=== PATIENT | female | born 1940 | race Caucasian/White ===

== ENCOUNTER 2017-10-15 00:19 | Inpatient (IN) ==
[2017-10-15] MEDS ORDERED: 0.9 % Sodium Chloride 1,000 ML ONE ×2 (00:24→04:43)
--- NOTE | 2017-10-15 00:24 | Emergency Department Note ---
Disposition Clinical Impression: Altered mental status, Hypotension Disposition: Admitted As Inpatient Condition: Serious Referrals: Lila Taylor MD [Primary Care Provider] - Buck Zepeda [Family Provider] - Forms: ED Satisfaction Letter Time of Disposition: 03:26 ([place] [facility]) Altered Mental Status HPI - General Chief Complaint: ED Altered Mental Status Stated Complaint: lethargic Time Seen by Provider: 10/15/17 00:25 Source: EMS Mode of arrival: EMS Limitations: altered mental status Nursing Notes Reviewed: Yes Vital Signs Reviewed: Yes - History of Present Illness HPI Narrative: The 7-year-old elderly female sent in from local residential for an alteration of a mental status where she is becoming less responsive she recently was started on Macrobid for urinary tract infection patient is unable to provide us with any history MD complaint: altered mental status Onset (ago): day(s) Consistency of Symptoms: waxing and waning, getting worse Context: other (recent illness) Associated symptoms: Reports: other (recent UTI) Treatments prior to arrival: IV fluid - Related Data Allergies Allergy/AdvReac Type Severity Reaction Status Date / Time aspirin Allergy See Verified 10/15/17 01:25 Comments caffeine Allergy See Verified 10/15/17 01:25 Comments Iodinated Contrast- Oral and Allergy See Verified 10/15/17 01:25 IV Dye Comments levofloxacin Allergy See Verified 10/15/17 01:25 Comments Penicillins Allergy See Verified 10/15/17 01:25 Comments sulfacetamide Allergy See Verified 10/15/17 01:25 [From Sulfamide] Comments Limitations: ROS unobtainable due to patients medical condition Past Medical History - Past Medical History Attestation: Yes The following information was validated with the patient. Source: patient, old records reviewed, nursing notes reviewed Medical history: Reports: COPD, GERD, hypertension, other (ascvd) Surgical history: Reports: other (baclofen pump) Physical Exam - General Limitations: altered mental status, age General appearance: obtunded - Head Head exam: atraumatic, normocephalic, normal inspection, other (Open-mouth breathing) - Eye Eye exam: Present: normal appearance, PERRL, EOMI - ENT ENT exam: normal exam, normal oropharynx, mucous membranes moist, TM's normal bilaterally, normal external ear exam - Neck Neck exam: Present: normal inspection, full ROM, trachea midline - Chest Chest inspection: Present: normal inspection, symmetric chest wall rise - Respiratory Respiratory exam: Present: normal lung sounds bilaterally - Cardiovascular Cardiovascular exam: Present: regular rate, normal rhythm, normal heart sounds - Abdominal Exam Abdominal exam: Present: soft, Non-Tender, diminished bowel sounds, mass, pulsatile mass - Extremities Exam Extremities exam: Present: other (So wasting of the extremities noted responsive to tactile stimulation by withdrawing contractures of the hands) - Back Exam Back exam: Present: normal inspection, full ROM. Absent: muscle spasm - Neurological Exam Neurological exam: Present: alert, oriented X3, CN II-XII intact, normal gait - Psychiatric Psychiatric exam: Present: normal affect, normal mood - Skin Skin exam: Present: warm, dry, intact, normal color Course Course Narrative: Patient was immediately seen and examined patient was given IV fluids upon her body weight workup was done to try to determine etiology for this case upon paperwork for this with her she is a in guarded condition prognosis is poor she is hypotensive she may be a partially treated UTI we did make sure that she does not have evidence of obvious stroke patient transferred to a [facility] condition Vital Signs Temperature 96.6 F L 10/15/17 00:22 Pulse Rate 57 10/15/17 00:22 Respiratory Rate 11 10/15/17 00:22 Blood Pressure 68/33 10/15/17 00:22 O2 Sat by Pulse Oximetry 89 10/15/17 00:22 Temperature 96.6 F L 10/15/17 00:22 Pulse Rate 68 10/15/17 02:26 Respiratory Rate 10 10/15/17 02:26 Blood Pressure 82/47 10/15/17 02:26 O2 Sat by Pulse Oximetry 99 10/15/17 02:26 Oxygen Delivery Oxygen Delivery Nasal Cannula Altered Mental Status - MDM Narrative Medical decision making narrative: UTI sepsis dehydration pneumonia metabolic imbalance - Medical Records Medical records reviewed: Yes I reviewed the patient's medical records. - Lab Data Lab results reviewed: Yes I reviewed the patient's lab results. Result diagrams: 10/15/17 00:40 10/15/17 00:40 Lab Results 10/15/17 10/15/17 10/15/17 Range/Units 00:40 00:40 00:40 WBC 8.1 (4.3-11.1) K/mcL RBC 3.73 L (3.82-4.97) M/mcL Hgb 10.9 L (11.5-15.4) g/dL Hct 34.9 L (35.3-44.9) % MCV 93.6 (83.0-100.0) fL MCH 29.2 (28.0-33.3) pg MCHC 31.2 L (31.6-35.5) g/dL RDW 15.9 H (11.5-14.5) % Plt Count 288 (140-400) K/mcL MPV 10.5 (9.4-12.4) fL Immature Gran % 0.2 (0-4) % Seg Neutrophils % 70.9 % Lymphocytes % 22.8 % Monocytes % 4.4 % Eosinophils % 1.1 % Basophils % 0.6 % Neutrophils # 5.7 (1.6-8.9) K/mcL Lymphocytes # 1.9 (0.6-4.6) K/mcL Monocytes # 0.4 (0.0-1.3) K/mcL Eosinophils # 0.1 (0.0-0.6) K/mcL Basophils # 0.1 (0.0-0.2) K/mcL PT 10.7 (9.4-12.1) Seconds INR 1.0 APTT 28.5 (26.0-36.0) Seconds Sodium 140 (136-145) mEq/L Potassium 4.5 (3.5-5.1) mEq/L Chloride 105 (98-107) mEq/L Carbon Dioxide 27 (23-29) mEq/L BUN 45 H (8-23) mg/dL Creatinine 1.68 H (0.60-1.20) mg/dL Est GFR ( Amer) 36 L (> 60) Est GFR (Non-Af Amer) 30 L (> 60) BUN/Creatinine Ratio 27 H (6-26) Glucose 179 H (70-105) mg/dL POC Glucose (70-99) mg/dL Calculated Osmolality 306 H (280-300) Lactic Acid (0.5-2.2) mmol/L Calcium 8.4 L (8.6-10.3) mg/dL Total Bilirubin 0.2 L (0.3-1.0) mg/dL AST 14 (13-39) Units/L ALT 8 (7-52) Units/L Alkaline Phosphatase 57 (34-104) Units/L Troponin I < 0.03 (< 0.04) ng/mL Serum Total Protein 5.6 L (6.4-8.9) g/dL Albumin 2.9 L (3.5-5.7) g/dL Globulin 2.7 (2.4-3.5) g/dL Albumin/Globulin Ratio 1.1 (1.1-2.2) TSH 0.737 (0.340-5.600) mcIU/mL Urine Color (Yellow) Urine Clarity (Clear) Urine pH (5.0-8.0) pH Units Ur Specific [place] (1.010-1.025) Urine Protein (Neg-Trace) mg/dL Urine Glucose (UA) (Normal) mg/dL Urine Ketones (Negative) mg/dL Urine Blood (Negative) Urine Nitrite (Negative) Urine Bilirubin (Negative) Urine Urobilinogen (Normal) mg/dL Ur Leukocyte Esterase (Negative) Urine Microscopic RBC (0-3) per hpf Urine Microscopic WBC (0-3) per hpf Ur Squamous Epith Cells (None-Few) per lpf Ur Transition Epith Cell (None-Few) per hpf Calcium Oxalate Crystal Urine Bacteria (None-Few) per hpf Hyaline Casts (None-Few) per lpf Urine Mucus (Few) Urine Yeast (None Seen) per hpf Ur Culture Indicated? (NO) 10/15/17 10/15/17 10/15/17 Range/Units 00:40 00:44 00:45 WBC (4.3-11.1) K/mcL RBC (3.82-4.97) M/mcL Hgb (11.5-15.4) g/dL Hct (35.3-44.9) % MCV (83.0-100.0) fL MCH (28.0-33.3) pg MCHC (31.6-35.5) g/dL RDW (11.5-14.5) % Plt Count (140-400) K/mcL MPV (9.4-12.4) fL Immature Gran % (0-4) % Seg Neutrophils % % Lymphocytes % % Monocytes % % Eosinophils % % Basophils % % Neutrophils # (1.6-8.9) K/mcL Lymphocytes # (0.6-4.6) K/mcL Monocytes # (0.0-1.3) K/mcL Eosinophils # (0.0-0.6) K/mcL Basophils # (0.0-0.2) K/mcL PT (9.4-12.1) Seconds INR APTT (26.0-36.0) Seconds Sodium (136-145) mEq/L Potassium (3.5-5.1) mEq/L Chloride (98-107) mEq/L Carbon Dioxide (23-29) mEq/L BUN (8-23) mg/dL Creatinine (0.60-1.20) mg/dL Est GFR ( Amer) (> 60) Est GFR (Non-Af Amer) (> 60) BUN/Creatinine Ratio (6-26) Glucose (70-105) mg/dL POC Glucose 159 H 169 H (70-99) mg/dL Calculated Osmolality (280-300) Lactic Acid 2.1 (0.5-2.2) mmol/L Calcium (8.6-10.3) mg/dL Total Bilirubin (0.3-1.0) mg/dL AST (13-39) Units/L ALT (7-52) Units/L Alkaline Phosphatase (34-104) Units/L Troponin I (< 0.04) ng/mL Serum Total Protein (6.4-8.9) g/dL Albumin (3.5-5.7) g/dL Globulin (2.4-3.5) g/dL Albumin/Globulin Ratio (1.1-2.2) TSH (0.340-5.600) mcIU/mL Urine Color (Yellow) Urine Clarity (Clear) Urine pH (5.0-8.0) pH Units Ur Specific [place] (1.010-1.025) Urine Protein (Neg-Trace) mg/dL Urine Glucose (UA) (Normal) mg/dL Urine Ketones (Negative) mg/dL Urine Blood (Negative) Urine Nitrite (Negative) Urine Bilirubin (Negative) Urine Urobilinogen (Normal) mg/dL Ur Leukocyte Esterase (Negative) Urine Microscopic RBC (0-3) per hpf Urine Microscopic WBC (0-3) per hpf Ur Squamous Epith Cells (None-Few) per lpf Ur Transition Epith Cell (None-Few) per hpf Calcium Oxalate Crystal Urine Bacteria (None-Few) per hpf Hyaline Casts (None-Few) per lpf Urine Mucus (Few) Urine Yeast (None Seen) per hpf Ur Culture Indicated? (NO) 10/15/17 Range/Units 02:26 WBC (4.3-11.1) K/mcL RBC (3.82-4.97) M/mcL Hgb (11.5-15.4) g/dL Hct (35.3-44.9) % MCV (83.0-100.0) fL MCH (28.0-33.3) pg MCHC (31.6-35.5) g/dL RDW (11.5-14.5) % Plt Count (140-400) K/mcL MPV (9.4-12.4) fL Immature Gran % (0-4) % Seg Neutrophils % % Lymphocytes % % Monocytes % % Eosinophils % % Basophils % % Neutrophils # (1.6-8.9) K/mcL Lymphocytes # (0.6-4.6) K/mcL Monocytes # (0.0-1.3) K/mcL Eosinophils # (0.0-0.6) K/mcL Basophils # (0.0-0.2) K/mcL PT (9.4-12.1) Seconds INR APTT (26.0-36.0) Seconds Sodium (136-145) mEq/L Potassium (3.5-5.1) mEq/L Chloride (98-107) mEq/L Carbon Dioxide (23-29) mEq/L BUN (8-23) mg/dL Creatinine (0.60-1.20) mg/dL Est GFR ( Amer) (> 60) Est GFR (Non-Af Amer) (> 60) BUN/Creatinine Ratio (6-26) Glucose (70-105) mg/dL POC Glucose (70-99) mg/dL Calculated Osmolality (280-300) Lactic Acid (0.5-2.2) mmol/L Calcium (8.6-10.3) mg/dL Total Bilirubin (0.3-1.0) mg/dL AST (13-39) Units/L ALT (7-52) Units/L Alkaline Phosphatase (34-104) Units/L Troponin I (< 0.04) ng/mL Serum Total Protein (6.4-8.9) g/dL Albumin (3.5-5.7) g/dL Globulin (2.4-3.5) g/dL Albumin/Globulin Ratio (1.1-2.2) TSH (0.340-5.600) mcIU/mL Urine Color Dark Yellow (Yellow) Urine Clarity Cloudy A (Clear) Urine pH 5.5 (5.0-8.0) pH Units Ur Specific [place] >= 1.030 H (1.010-1.025) Urine Protein 100 H (Neg-Trace) mg/dL Urine Glucose (UA) Normal (Normal) mg/dL Urine Ketones Trace H (Negative) mg/dL Urine Blood Trace-intact H (Negative) Urine Nitrite Negative (Negative) Urine Bilirubin Large H (Negative) Urine Urobilinogen Normal (Normal) mg/dL Ur Leukocyte Esterase Small H (Negative) Urine Microscopic RBC 5-15 H (0-3) per hpf Urine Microscopic WBC 50-100 H (0-3) per hpf Ur Squamous Epith Cells Many H (None-Few) per lpf Ur Transition Epith Cell Few (None-Few) per hpf Calcium Oxalate Crystal Present Urine Bacteria Many H (None-Few) per hpf Hyaline Casts Few (None-Few) per lpf Urine Mucus Few (Few) Urine Yeast Moderate H (None Seen) per hpf Ur Culture Indicated? NO. (NO) - Radiology Data Radiology results reviewed: Yes I reviewed the patient's radiology results. ITS Impressions Chest X-Ray 10/15/17 00:29 IMPRESSION: 1. No acute cardiopulmonary abnormality. 2. Large retrocardiac hiatal hernia with left base atelectasis. D/ / Red Walls / Red Walls Interpreting Provider: Red Walls Head CT 10/15/17 00:29 IMPRESSION: 1. No acute intracranial abnormality. 2. Frothy fluid in the right sphenoid sinus may reflect acute sinusitis. 3. Small right mastoid effusion. D/ / Red Walls / Red Walls Interpreting Provider: Red Walls - EKG Data EKG attestation: Yes I reviewed and interpreted this EKG. EKG results narrative: Sinus rhythm 67 WV 197 QRS 83 QT 411 access 22 TPA Checklist - LKW: 3-4.5 hrs Add. Warnings/Precautions Patient/family understanding: The patient/family members have been counseled and understood the risk, benefit , and alternatives of treatment. Critical Care Time Critical Care Time: Yes Total Critical Care Time: 45 Attestation: Critical care performed: 45 minutes high probability of clinically significant life threatening deterioration of this patient's condition excluding separately reportable procedures as result of the patient's hypotension and most likely underlying septic presentation patient is at significant risk for decompensation or further worsening of the condition she is a DNR CC arrest with medication only based upon the form that has been provided with her I spoke with Dr. Velez he agrees for admission transfer to [facility] for further management Time is exclusive of separately billable procedures. Time includes: direct patient care, patient reassessment, coordination of patient care, interpretation of data (laboratory data, radiology data, and respiratory data), review of patient's medical records, medical consultation and documentation of patient care. Procedures included in critical care time: Procedures excluded from critical care time:
[2017-10-15] MEDS ORDERED: 0.9 % Sodium Chloride 1,000 ML IVC ONE (00:27)
[2017-10-15 00:55] LABS: Basophils # 0.1 K/mcL (0.0-0.2); Basophils % 0.6 %; Eosinophils # 0.1 K/mcL (0.0-0.6); Eosinophils % 1.1 %; Hematocrit 34.9 % (35.3-44.9); Hemoglobin 10.9 g/dL (11.5-15.4); Immature Granulocytes % 0.2 % (0-4); Lymphocytes # 1.9 K/mcL (0.6-4.6); Lymphocytes % 22.8 %; Mean Corpuscular HGB Conc 31.2 g/dL (31.6-35.5); Mean Corpuscular Hemoglobin 29.2 pg (28.0-33.3); Mean Corpuscular Volume 93.6 fL (83.0-100.0); Mean Platelet Volume 10.5 fL (9.4-12.4); Monocytes # 0.4 K/mcL (0.0-1.3); Monocytes % 4.4 %; Neutrophils # 5.7 K/mcL (1.6-8.9); Platelet Count 288 K/mcL (140-400); Red Blood Count 3.73 M/mcL (3.82-4.97); Red Cell Distribution Width 15.9 % (11.5-14.5); Segmented Neutrophils % 70.9 %
[2017-10-15 01:10] LABS: Prothrombin Time 10.7 Seconds (9.4-12.1)
[2017-10-15 01:13] LABS: Activated Partial Thrombo Time 28.5 Seconds (26.0-36.0)
[2017-10-15 01:20] LABS: Alanine Aminotransferase 8 Units/L (7-52); Albumin 2.9 g/dL (3.5-5.7); Albumin/Globulin Ratio 1.1 (1.1-2.2); Alkaline Phosphatase 57 Units/L (34-104); Aspartate Amino Transferase 14 Units/L (13-39); BUN/Creatinine Ratio 27 (6-26); Bilirubin,Total 0.2 mg/dL (0.3-1.0); Blood Urea Nitrogen 45 mg/dL (8-23); Calcium 8.4 mg/dL (8.6-10.3); Carbon Dioxide 27 mEq/L (23-29); Chloride 105 mEq/L (98-107); Globulin 2.7 g/dL (2.4-3.5); Glucose 179 mg/dL (70-105); Osmolality,Calculated 306 (280-300); Potassium 4.5 mEq/L (3.5-5.1); Sodium 140 mEq/L (136-145); Total Protein 5.6 g/dL (6.4-8.9); Troponin I < 0.03 ng/mL (< 0.04); eGFR For African Americans 36 (> 60); eGFR For Non-African Americans 30 (> 60)
[2017-10-15 01:31] LABS: Thyroid Stimulating Hormone 0.737 mcIU/mL (0.340-5.600)
[2017-10-15 02:27] LABS: Bilirubin,Urine Large (Negative); Blood,Urine Trace-intact (Negative); Clarity,Urine Cloudy (Clear); Color,Urine Dark Yellow (Yellow); Glucose,Urine (UA) Normal (Normal); Ketones,Urine Trace mg/dL (Negative); Leukocyte Esterase,Urine Small (Negative); Nitrite,Urine Negative (Negative); PH,Urine 5.5 pH Units (5.0-8.0); Protein,Urine 100 mg/dL (Neg-Trace); Specific Gravity,Urine >= 1.030 (1.010-1.025); Urobilinogen,Urine Normal (Normal)
[2017-10-15 02:39] LABS: Squamous Epithelial Cell,Urine Many per lpf (None-Few)
[2017-10-15 02:40] LABS: Transitional Epi Cells,Urine Few per hpf (None-Few)
[2017-10-15 02:42] LABS: Bacteria,Urine Many per hpf (None-Few)
[2017-10-15 02:43] LABS: Calcium Oxalate Crystals,Urine Present; WBC,Urine 50-100 per hpf (0-3)
[2017-10-15 02:44] LABS: Mucus,Urine Few (Few); Yeast,Urine Moderate per hpf (None Seen)
[2017-10-15 02:49] LABS: Hyaline Casts,Urine Few per lpf (None-Few)
[2017-10-15] MEDS ORDERED: Naloxone 0.4 MG/ML INJ IVP PRN ×2 (04:43)
[2017-10-15] MEDS ORDERED: 0.9 % Sodium Chloride 1,000 ML IVC SCH (04:43)
[2017-10-15] MEDS ORDERED: 0.9 % Sodium Chloride 500 ML IVC ONE (05:36)
--- NOTE | 2017-10-15 08:57 | Electrocardiograph Report ---
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
--- NOTE | 2017-10-15 15:16 | Internal Med History&Physical ---
Date of Encounter: 10/15/17 Time of Encounter: 14:50 Assessment and Plan (1) Acute renal failure Current visit: Yes Status: Acute Creatinine significant increased from 5 days ago. We will give IV fluids and recheck labs in a.m. Qualifiers: Acute renal failure type: unspecified Qualified Code(s): N17.9 - Acute kidney failure, unspecified (2) Anemia Current visit: Yes Status: Acute Hemoglobin normal 5 days ago at 12.3. Labs on 10/10/2017 showed iron 41, B12 728, and folate greater than 22.3. We will recheck labs in a.m. Qualifiers: Anemia type: unspecified type Qualified Code(s): D64.9 - Anemia, unspecified (3) Hypotension Current visit: Yes Status: Acute Blood pressure low on admission. Will hold lisinopril and give IV fluids. Qualifiers: Hypotension type: unspecified hypotension type Qualified Code(s): I95.9 - Hypotension, unspecified Internal Medicine - H&P: HPI Chief complaint: Mental status change Admitted From: Emergency Dept Plans for Post Hospital Care: Home History of present illness: Ms. Landaverde is a 77 year old female who was brought to emergency room after caregivers at the group are reported she had mental status change. She was evaluated in emergency room and found to have hypotension. She was admitted to [facility] floor for ongoing care needs. She is nonverbal and cannot supply any history. Past Med Surg Social Fam HX - Past Medical History Medical history: COPD, GERD, hypertension, other Psychiatric history: anxiety, depression, PTSD - Past Surgical History Surgical History: other - Social History Smoking Status: Unknown if ever smoked Alcohol use: none Drug use: none Internal Medicine - H&P: Meds Argin/Glut/Cahmb/Collag/Mv-Min [[place] Packet] 1 each PO BID 10/15/17 [History] Baclofen [Lioresal] 10 mg PO TID 10/15/17 [History] Bisacodyl [Dulcolax] 5 mg PO DAILY 10/15/17 [History] Cholecalciferol (Vitamin D3) [Vitamin D] 5 cap PO DAILY 10/15/17 [History] Clopidogrel [Plavix] 75 mg PO DAILY 10/15/17 [History] Gabapentin [Neurontin] 600 mg PO HS 10/15/17 [History] Iron Ps Cmplx/Vit B12/FA [Ferrex 150 Forte Capsule] 1 each PO TID 10/15/17 [ History] Lactulose [Enulose] 30 gm PO BID 10/15/17 [History] Lisinopril [Zestril] 40 mg PO DAILY 10/15/17 [History] Multivit-Min/Iron Fum/Folic AC [Mfuir-Cjuwbra-Xupzdpub Tablet] 1 each PO DAILY 10/15/17 [History] Omeprazole [PriLOSEC] 40 mg PO DAILY 10/15/17 [History] Polyethylene Glycol 3350 [MiraLAX] 17 gm PO DAILY 10/15/17 [History] Quetiapine Fumarate [SEROquel] 25 mg PO HS 10/15/17 [History] Sennosides [Senna] 4 tab PO HS 10/15/17 [History] Simvastatin [Zocor] 20 mg PO HS 10/15/17 [History] Whey Protein Isolate [Beneprotein] 1 each PO TID 10/15/17 [History] 3 Allergy/AdvReac Type Severity Reaction Status Date / Time aspirin Allergy See Verified 10/15/17 01:25 Comments caffeine Allergy See Verified 10/15/17 01:25 Comments Iodinated Contrast- Oral and Allergy See Verified 10/15/17 01:25 IV Dye Comments levofloxacin Allergy See Verified 10/15/17 01:25 Comments Penicillins Allergy See Verified 10/15/17 01:25 Comments sulfacetamide Allergy See Verified 10/15/17 01:25 [From Sulfamide] Comments Review of systems: Unobtainable from the patient due to nonverbal condition - Constitutional Vitals: Temp Pulse Resp BP Pulse Ox 98.8 F 69 10 117/85 98 10/15/17 06:39 10/15/17 06:39 10/15/17 06:39 10/15/17 06:39 10/15/17 06:39 Exam: Gen.: She is a well-developed well-nourished female lying in bed who appears in no acute distress at rest. HEENT: Head appears atraumatic and normocephalic. Eyes: She does not open her eyes for examination. Mouth: Her mucosa appears slightly dry but she does not open her mouth well for examination. Neck: There is no thyromegaly or adenopathy noted. Heart: Regular without murmurs gallops or ectopics Lungs: No wheezes or crackles are heard. Abdomen: She has an implanted device in the left lower abdominal area with well- healed scars. There is an upper abdominal longitudinal scar in the midline. There is a well-healed lower midline abdominal scar longitudinal direction. No masses or guarding are noted. Extremities: She has bilateral foot drop. Dorsalis pedis and posttibial pulses are trace palpable bilaterally. She is holding her arms in a contracted flexed position. Neurologic: Mental status: She does not respond to voice or light touch in a meaningful way. Cranial nerves: She does not move her facial muscles significantly for testing. She does not follow commands. Motor: She does not move her arms or legs spontaneously. No further neurologic testing is attempted. Skin: Warm and dry Internal Med - H&P Results - Labs CBC & Chem 7: 10/15/17 00:40 10/15/17 00:40 Labs: Cardiac Enzymes 10/15/17 10/15/17 Range/Units 07:23 13:25 Troponin I < 0.03 < 0.03 (< 0.04) ng/mL
[2017-10-15] MEDS: Doxycycline 100 MG in 0.9 % Sodium Chloride Mini Bag 100 ML IVPB SCH (17:44)
[2017-10-15] MEDS: Lactobacillus 1 EACH CAP.SPRINK PO SCH (21:55)
[2017-10-15] MEDS ORDERED: cefTRIAXone 1,000 MG in Water for inj. (sterile) 10 ML IVPB SCH (23:00)
[2017-10-16 05:32] LABS: Basophils % 0.5 %; Eosinophils # 0.2 K/mcL (0.0-0.6); Eosinophils % 2.5 %; Hematocrit 35.3 % (35.3-44.9); Hemoglobin 10.9 g/dL (11.5-15.4); Immature Granulocytes % 0.4 % (0-4); Lymphocytes # 1.6 K/mcL (0.6-4.6); Lymphocytes % 19.1 %; Mean Corpuscular HGB Conc 30.9 g/dL (31.6-35.5); Mean Corpuscular Hemoglobin 28.6 pg (28.0-33.3); Mean Corpuscular Volume 92.7 fL (83.0-100.0); Monocytes # 0.4 K/mcL (0.0-1.3); Monocytes % 4.3 %; Neutrophils # 6.1 K/mcL (1.6-8.9); Platelet Count 259 K/mcL (140-400); Red Blood Count 3.81 M/mcL (3.82-4.97); Red Cell Distribution Width 15.5 % (11.5-14.5); Segmented Neutrophils % 73.2 %
[2017-10-16] MEDS: Doxycycline 100 MG in 0.9 % Sodium Chloride Mini Bag 100 ML IVPB SCH (05:33)
[2017-10-16 05:47] LABS: BUN/Creatinine Ratio 68 (6-26); Blood Urea Nitrogen 21 mg/dL (8-23); Calcium 7.9 mg/dL (8.6-10.3); Carbon Dioxide 23 mEq/L (23-29); Chloride 108 mEq/L (98-107); Glucose 66 mg/dL (70-105); Osmolality,Calculated 281 (280-300); Potassium 4.6 mEq/L (3.5-5.1); Sodium 135 mEq/L (136-145); eGFR For African Americans > 60 (> 60); eGFR For Non-African Americans > 60 (> 60)
[2017-10-16 06:35] VITALS: BP 104/54
[2017-10-16] MEDS: Lactobacillus 1 EACH CAP.SPRINK PO SCH (07:43)
--- NOTE | 2017-10-16 09:50 | Discharge Summary ---
Date of Encounter: 10/16/17 Time of Encounter: 09:40 - Discharge Diagnosis (1) Acute renal failure Priority: Primary Status: Resolved Qualifiers: Acute renal failure type: unspecified Qualified Code(s): N17.9 - Acute kidney failure, unspecified (2) Anemia Priority: Secondary Status: Acute Qualifiers: Anemia type: unspecified type Qualified Code(s): D64.9 - Anemia, unspecified (3) Hypotension Priority: Secondary Status: Resolved Qualifiers: Hypotension type: unspecified hypotension type Qualified Code(s): I95.9 - Hypotension, unspecified Hospital course: Ms. Landavedre is a 77 year old female who was brought to emergency room after caregivers [facility] are [facility] she had mental status change. She was evaluated in emergency room and found to have hypotension. She was admitted to [facility] for ongoing care needs. She is nonverbal and cannot supply any history. Initial orders were written by the emergency room physician. I saw her on October 15 and performed the history and physical. She was given IV fluids. Azotemia resolved with BUN and creatinine decreasing to 21 and 0.31 respectively on October 16 with estimated GFR greater than 60. WBC remained normal with no left shift seen on differential. She had improvement in her mental status and would open her eyes but would not attempt to speak or follow commands. I felt she was medically stable for discharge back to the custodial where she will follow with Dr. Taylor. Review of past urine culture was done. She was placed on antibiotics during hospitalization and will continue with Ceftin and doxycycline with lactobacillus for 3 additional days at discharge. Ferritin and iron profile are pending at time of discharge. - Time Spent with Patient Total time spent providing and/or coordinating discharge services: - Discharge Medications Prescriptions: Cefuroxime PO [Ceftin] 500 mg PO Q12HR #6 tablet Doxycycline 100 mg PO BID #6 capsule Lactobacillus [Culturelle] 1 each PO BID #6 cap.sprink Home Medications: Argin/Glut/Cahmb/Collag/Mv-Min [[place] Packet] 1 each PO BID 10/15/17 [History] Baclofen [Lioresal] 10 mg PO TID 10/15/17 [History] Bisacodyl [Dulcolax] 5 mg PO DAILY 10/15/17 [History] Cholecalciferol (Vitamin D3) [Vitamin D3] 5 cap PO DAILY 10/15/17 [History] Clopidogrel [Plavix] 75 mg PO DAILY 10/15/17 [History] Gabapentin [Neurontin] 600 mg PO HS 10/15/17 [History] Iron Ps Cmplx/Vit B12/FA [Ferrex 150 Forte Capsule] 1 each PO TID 10/15/17 [ History] Lactulose [Enulose] 30 gm PO BID 10/15/17 [History] Multivit-Min/Iron Fum/Folic AC [Jfllf-Narnqxe-Ylkdssdv Tablet] 1 each PO DAILY 10/15/17 [History] Omeprazole [PriLOSEC] 40 mg PO DAILY 10/15/17 [History] Polyethylene Glycol 3350 [MiraLAX] 17 gm PO DAILY 10/15/17 [History] Quetiapine Fumarate [Seroquel] 25 mg PO HS 10/15/17 [History] Sennosides [Senna] 4 tab PO HS 10/15/17 [History] Simvastatin [Zocor] 20 mg PO HS 10/15/17 [History] Whey Protein Isolate [Beneprotein] 1 each PO TID 10/15/17 [History] Cefuroxime PO [Ceftin] 500 mg PO Q12HR #6 tablet 10/16/17 [Rx] Doxycycline 100 mg PO BID #6 capsule 10/16/17 [Rx] Lactobacillus [Culturelle] 1 each PO BID #6 cap.sprink 10/16/17 [Rx] Allergies/Adverse Reactions: 3 Allergy/AdvReac Type Severity Reaction Status Date / Time aspirin Allergy See Verified 10/15/17 01:25 Comments caffeine Allergy See Verified 10/15/17 01:25 Comments Iodinated Contrast- Oral and Allergy See Verified 10/15/17 01:25 IV Dye Comments levofloxacin Allergy See Verified 10/15/17 01:25 Comments Penicillins Allergy See Verified 10/15/17 01:25 Comments sulfacetamide Allergy See Verified 10/15/17 01:25 [From Sulfamide] Comments Date of admission: 10/15/17 15:09 Primary care physician: Lila Taylor - Constitutional Vitals: Temp Pulse Resp BP Pulse Ox 98.1 F 86 22 104/54 99 10/16/17 06:31 10/16/17 06:31 10/16/17 06:31 10/16/17 06:31 10/16/17 06:31 - Patient Status Disposition: Home, Self-Care Condition: Serious - Discharge Instructions Follow Up With: Lila Taylor MD [Primary Care Provider] - 1 week Additional Instructions: CBC with differential, BMP in 3 days - Diet and Activity Activity: resume usual activities as tolerated Diet: advance to your usual diet
[2017-10-16 11:21] LABS: % Iron Saturation 21 % (15-50); Ferritin 108 ng/ml (10-120); Iron 56 mcg/dL (50-170); Transferrin 194 mg/dL (203-362)
== END 2017-10-16 10:31 | disposition home or self-care (01) | DRG 684 ==
LOC: EMEROOPIK 00:19 → INPPIK 00:19
PROVIDERS: ADMIT Internal Medicine; ATTEND Internal Medicine